=== PATIENT | female | born 1955 | race Caucasian/White ===

== ENCOUNTER 2017-03-02 16:19 | Inpatient (IN) | payer OTHER, MEDICARE ==
[2017-03-02] MEDS ORDERED: SODIUM CHLORIDE 0.9% (FLUSH) 10 ML SYG IV PRN (16:59)
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
[2017-03-02] MEDS ORDERED: IPRATROPIUM/ALBUTEROL 3 ML VIAL NEB ONE (17:08)
[2017-03-02] MEDS: SODIUM CHLORIDE 0.9% 1000ML 1,000 ML IVS PRN ×2 (17:15→18:51)
--- NOTE | 2017-03-02 17:28 | RAD ---
PROCEDURE: XR CHEST 1 VIEW HISTORY: COUGH COMPARISON: 07/03/2015 TECHNIQUE: Single projection of the chest was done. FINDINGS: The lung rose are well inflated . There are no discrete airspace infiltrates, pneumothoraces or pleural effusions. The pulmonary vascularity is normal. The cardiomediastinal silhouette is stable. IMPRESSION: There is no acute pleural-parenchymal process seen in the imaged lung rose. Location of Interpretation: [facility] Electronically signed by: Shola Bishop MD 03/02/2017 5:28 PM CDT
[2017-03-02] MEDS ORDERED: SODIUM CHLORIDE 0.9% 1000ML 1,000 ML IVS ONE (18:49)
[2017-03-02] MEDS ORDERED: metroNIDAZOLE 500 MG TAB PO ONE (20:55)
[2017-03-02] MEDS ORDERED: metroNIDAZOLE IV PREMIX 500MG 500 MG in PREMIX BAG 1 BAG IVPB ONE (21:09)
[2017-03-02] MEDS ORDERED: metroNIDAZOLE IV PREMIX 500MG 100 ML IVPB ONE (21:13)
[2017-03-02] MEDS ORDERED: PSYLLIUM ONE (21:38)
[2017-03-02] MEDS ORDERED: ONDANSETRON INJ 4 MG/2 ML VIAL IV ONE ×2 (21:38)
[2017-03-02] MEDS ORDERED: ONDANSETRON INJ 4 MG/2 ML VIAL IV PRN (21:48)
[2017-03-02] MEDS ORDERED: ACETAMINOPHEN 325 MG TAB PO PRN (21:48)
[2017-03-02] MEDS ORDERED: GLUCAGON INJ 1 MG VIAL SUBCU PRN (21:48)
[2017-03-02] MEDS ORDERED: ALBUTEROL SULFATE 2.5 MG/3 ML VIAL NEB PRN (21:48)
[2017-03-02] MEDS ORDERED: PROCHLORPERAZINE INJ 10 MG/2 ML VIAL IV ONE (22:06)
--- NOTE | 2017-03-02 22:18 | HP ---
SUPERVISING PHYSICIAN: Ruel Liu MD CHIEF COMPLAINT: Shortness of breath with nausea, vomiting and diarrhea. HISTORY OF PRESENT ILLNESS: Ms. Briones is a 61-year-old, female with a history of hypogammaglobulinemia that presented to the Emergency Department today after she had a near syncopal episode at home while on the toilet. The patient noted she felt dizzy and had seen some spots, but reported she did not completely lose consciousness. The patient had been having some nausea, vomiting and diarrhea that began earlier in the morning. She had seen her primary care provider in the clinic early the morning of admission for an upper respiratory infection and had been started on Augmentin and given a Celestone steroid shot. Upon admission by EMS, the patient was found to be hypotensive as well as when she was admitted to the Emergency Department. The patient does have a remote history of antibiotic usage within the last 3 months having been on cefdinir in November for an upper respiratory infection. In the Emergency Department, she was provided IV fluids and laboratory studies were completed that indicated she had a white count of 19.8 with a shift on differential noted. Chemistries showed normal electrolytes with potassium 4.7, BUN 27, creatinine 1.79, glucose 374, lactic acid 2.2, calcium 8.9, magnesium 2.5. Bilirubin elevated at 1.1 with alkaline phosphatase 195. Cardiac enzymes showed troponin less than 0.02. Amylase was elevated at 304, but lipase was normal at 33. Urinalysis showed 500 glucose 15 ketones, small amount of blood, small amount of bilirubin with microscopic showing 3 to 5 RBCs, 0 to 1 WBCs, 3+ amorphus, 1+ bacteria. Given that she was having diarrhea and had been on recent antibiotics, Clostridium difficile testing for A&B was requested which was positive for C. difficile antigen, but negative for C. difficile toxin A&B. The patient also had blood cultures drawn and after results of C. difficile testing, the patient was started on treatment for C. difficile infection with vancomycin orally and IV metronidazole. After treatment was initiated, she was then admitted to the hospital for further treatment and evaluation. PAST MEDICAL HISTORY: 1. Gammaglobulin deficiency. 2. Insulin dependent diabetes mellitus, type 2. 3. Diabetic neuropathy. 4. Bipolar disorder. 5. Hyperlipidemia. 6. Hypertension. 7. Obesity. PAST SURGICAL HISTORY: 1. Tonsillectomy. 2. Cholecystectomy. 3. Ectopic , surgically removed. 4. Hysterectomy with salpingo-oophorectomy. HOME MEDICATIONS: Please refer to updated list in the electronic medical record that have been verified, but currently listed: 1. Aspirin 81 mg daily. 2. Triazolam 0.25 mg at bedtime. 3. Bydureon 2 mg subcutaneously weekly. 4. Tramadol 50 mg as needed. 5. Ropinirole 1 mg as needed. 6. Multivitamins with minerals 1 daily. 7. Vitamin C 1000 mg daily. 8. Multivitamin 1 unit daily. 9. Iron sulfate 65 mg daily. 10. Loratadine 10 mg daily. 11. Farxiga 10 mg daily. 12. Toujeo Solostar 300 units subcutaneously daily. 13. Metoprolol succinate ER 25 mg daily. 14. Divalproex sodium 500 mg daily. 15. Calcification with magnesium 750/465 mg 1 daily. 16. B Complex 1 daily. 17. Gabapentin 300 mg 3 times daily. 18. Oxybutynin chloride ER 10 mg daily. 19. Lisinopril 25 mg daily. 20. Seroquel 600 mg at bedtime. 21. Trazodone 300 mg at bedtime. ALLERGIES: CODEINE, SULFA DRUGS. FAMILY HISTORY: Unremarkable. SOCIAL HISTORY: The patient works as a therapy aide. She is and she lives in [place]. She has never smoked and she drinks alcohol on an infrequent basis. She denies any illicit drug use. REVIEW OF SYSTEMS: CONSTITUTIONAL: Positive for malaise, but denies any fevers, chills. HEENT: Denies ear pain or sore throat. RESPIRATORY: As noted in history of present illness, cough and shortness of breath. CARDIOVASCULAR: Denies chest pain. GASTROINTESTINAL: As note din history of present illness, diarrhea, nausea and vomiting. Denies any nancy abdominal pain. GENITOURINARY: Denies dysuria, increased frequency or other urinary symptoms. MUSCULOSKELETAL: Multiple chronic joint pains. NEUROLOGIC: Bipolar with severe emotional problems recently started on medications due to episode of jovanna and also reporting weakness. PHYSICAL EXAMINATION: VITAL SIGNS: Initially in the Emergency Department, blood pressure 90/57. Heart rate 87. O2 saturation 94% on room air. Respirations 16. On admission to the Medical/Surgical Floor, temperature was 99.2. Pulse 86. Blood pressure 136/88. O2 saturation 94%. Respirations 18. GENERAL: The patient was alert. She was in some mild distress with active emesis and prominent cough. HEENT: Tympanic membranes clear bilaterally. Oropharynx is mildly erythematous , but no lesions. NECK: Supple. No jugular venous distention noted. CHEST: Lungs notable for rales and rhonchi on the left compared to the right with a very hoarse sounding cough. CARDIOVASCULAR: Regular rate and rhythm without any appreciable murmurs, gallops, or rubs. ABDOMEN: Soft, nontender. Positive bowel sounds. EXTREMITIES: There is no cyanosis, clubbing or edema. NEUROLOGIC: The patient is alert and oriented times three. LABORATORY: White count on admission showed leukocytosis of 19.8, hemoglobin 14.4, hematocrit 45.3, platelet count 242,000, differential did show a left shift. Coagulation studies showed PT 11.3, PT-T 29.8. Chemistries showed on admission normal electrolytes with potassium 4.7, BUN 27, creatinine 1.79, glucose initially 274, lactic acid 2.2, calcium 8.9, magnesium 2.5. Troponin initially was less than 0.02. Amylase elevated at 304, lipase normal at 33. Liver functions showed just a slightly elevated bilirubin at 1.1. Urinalysis showed 500 glucose with 15 ketones, moderate amount of blood, small bilirubin with microscopic showing within normal limits. MICROBIOLOGY: Blood cultures were submitted times 2. Stool C. difficile toxin A&B was positive. RADIOLOGY: CT of abdomen pending. ASSESSMENT: 1. Leukocytosis secondary to Clostridium difficile infection with concerns for developing early sepsis and enterocolitis. 2. Gammaglobulin deficiency. 3. Insulin dependent diabetes mellitus, type 2. 4. Diabetic neuropathy. 5. Bipolar disorder. 6. Hyperlipidemia. 7. Hypertension. PLAN: Patient will be admitted for initiation of treatment with oral vancomycin and IV Flagyl. Infectious disease discussion with Dr. Noguera recommended we continue with treatment for 14 days, but once the patient's leukocytosis is resolved, she could be continued in outpatient treatment setting. The patient will be supported with IV fluids. We will anticipate her stay to be at least 2 to 3 days depending on how well she responds to treatment and once her white count responds and normalizes, she will be stable enough to be discharged home to continue with outpatient treatment plan. Until then, we will continue to monitor the patient closely and treat appropriately. Once she is discharged, she can be followed up in the outpatient setting with her primary care provider, Dr. Cordon. #[id number] #[id number] [facility]
--- NOTE | 2017-03-02 23:27 | CT ---
EXAM DESCRIPTION: Abdomen/Pelvis w/Contrast (accession [id number]), Chest w/Contrast (accession [id number]) CLINICAL HISTORY: C diff infection/colitis COMPARISON: None Available. TECHNIQUE: Contiguous axial images of the chest, abdomen and pelvis were obtained followed by reconstruction images. This exam was performed according to our departmental dose-optimization program, which includes automated exposure control, adjustment of the mA and/or kV according to patient size and/or use of iterative reconstruction technique. FINDINGS: There is a trace amount of free fluid in the pelvis. There is diffuse mucosal thickening of the descending colon and distal transverse colon which could be secondary to an infectious versus inflammatory colitis. There is mild stranding of the adjacent fat. Calcifications within the pelvis compatible with phlebolith. Appendix was not visualized, there is no pericecal inflammation. There is a small bulla within its lower lung. The aorta is of normal contour and tapering. There is no pericardial or pleural fluid collection. There is no parenchymal consolidation or pneumothorax. The liver, spleen, pancreas and kidneys are within normal limits. There is no hydronephrosis or renal stones. Patient is status post cholecystectomy. Adrenal glands are within normal limits. Aorta is of normal caliber and tapering. There is no free fluid in the abdomen or pelvis. There is no bowel obstruction. IMPRESSION: Diffuse mucosal thickening of the distal transverse colon and descending colon could be secondary to an infectious versus inflammatory colitis. Other etiologies not excluded. Please correlate. Electronically signed by: Manav Owens MD 03/02/2017 11:26 PM CDT
[2017-03-02] MEDS ORDERED: INSULIN, REG.(HUMAN) 100 U/ML VIAL ONE ×2 (23:37→23:51)
[2017-03-02] MEDS: KCL 40MEQ/NS 1,000 ML IVS PRN (23:52)
[2017-03-02] MEDS: VANCOMYCIN ORAL LIQUID 2,000 MG/80 ML BOTTLE PO SCH (23:52)
[2017-03-02] MEDS: IV SET AND CAP CHANGE INJ INJ SCH (23:52)
[2017-03-03] MEDS: VANCOMYCIN ORAL LIQUID 2,000 MG/80 ML BOTTLE PO SCH ×4 (00:26→18:41)
[2017-03-03] MEDS: INSULIN LISPRO 100 UNITS/ML PEN SUBCU SCH ×4 (00:36→18:41)
[2017-03-03] MEDS: traZODone HCL 100 MG TAB PO SCH ×2 (02:52→21:25)
[2017-03-03] MEDS ORDERED: traZODone HCL 100 MG TAB PO ONE (02:52)
[2017-03-03] MEDS ORDERED: metroNIDAZOLE IV PREMIX 500MG 100 ML IVPB ONE ×4 (05:25→20:41)
[2017-03-03] MEDS: metroNIDAZOLE IV PREMIX 500MG 500 MG in PREMIX BAG 1 BAG IVPB SCH ×3 (05:25→20:20)
[2017-03-03] MEDS ORDERED: INSULIN, REG.(HUMAN) 100 U/ML VIAL ONE (06:29)
[2017-03-03] MEDS: IPRATROPIUM/ALBUTEROL 3 ML VIAL INH SCH ×4 (08:19→20:30)
[2017-03-03] MEDS ORDERED: PROCHLORPERAZINE INJ 10 MG/2 ML VIAL IV PRN (08:47)
[2017-03-03] MEDS: KCL 40MEQ/NS 1,000 ML IVS PRN ×2 (09:39→21:24)
--- NOTE | 2017-03-03 13:16 | PN ---
SUPERVISING PHYSICIAN: Ruel Liu MD DATE: 03/03/17 SUBJECTIVE: The patient is lying in her bed. She is somewhat drowsy. She earlier had complaints of some vomiting and Zofran had not helped, so she received some Compazine. She does awaken easily and answers questions appropriately, but again she is very sleepy. She has no complaints of shortness of breath or chest pain. She does complain of that her abdomen is still quite tender. OBJECTIVE: VITAL SIGNS: Temperature 100. Heart rate 91. Blood pressure 123/ 71. Respiratory rate 20. O2 saturation 90%. LUNGS: Somewhat diminished at the bases, but otherwise clear to auscultation. CARDIAC: Regular rate and rhythm. ABDOMEN: Soft. It is diffusely tender. There is no rebound tenderness. Bowel sounds are positive. EXTREMITIES: No cyanosis, clubbing or edema. NEUROLOGIC: The patient is drowsy, but she is oriented times three. LABORATORY: White count has come down slightly to 18. She does have a left shift. Potassium is slightly elevated at 5.2. BUN is 21, but her creatinine has normalized at 1.19. Her bilirubin was elevated yesterday and today is 0.8. Alkaline phosphatase has decreased to 131. Amylase is 71 and her lipase is 19. All other labs and films have been reviewed via the EMR. ASSESSMENT: 1. Clostridium Difficile with acute gastroenteritis. 2. Nausea, vomiting and diarrhea. 3. Dehydration most likely due to number 2. 4. Near syncopal episode most likely due to the Clostridium Difficile and dehydration. 5. Upper respiratory infection being seen previously by her primary care physician, Dr. Cordon and put on Augmentin, although she only received 1 or 2 doses. 6. Leukocytosis, question if it is due to the Clostridium Difficile and/or the upper respiratory infection. 7. Diabetes mellitus. 8. Gamma globulin deficiency. 9. Hypertension. PLAN: We will continue as an inpatient and monitor the patient closely. Dr. Noguera recommended that she be on the oral vancomycin as well as IV Flagyl, and to continue that for 14 total days. If she improves, she may be able to go home on p.o. antibiotics and followup with Dr. Cordon. As of now, she is NPO except for her medications and she is getting some ice chips. We can advance her diet once her abdomen becomes less tender and she no longer has diarrhea. I have ordered routine labs in the morning. We will follow her closely and treat as appropriate. Dr. Liu is the collaborating physician and available for consultation. #[id number], #[id number], #[id number] and #[id number] [facility]
[2017-03-03] MEDS: HYDROcodone 5MG/APAP 325MG 1 EA TAB PO PRN ×2 (16:08→22:13)
[2017-03-03] MEDS ORDERED: QUETIAPINE FUMARATE 600 MG PO SCH (21:00)
[2017-03-03] MEDS ORDERED: TRAZODONE HCL 300 MG PO SCH (21:00)
[2017-03-03] MEDS: DIVALPROEX SODIUM ER 500 MG TAB PO SCH (21:25)
[2017-03-03] MEDS: GABAPENTIN 300 MG CAP PO SCH (21:26)
[2017-03-03] MEDS: TRIAZOLAM 0.25 MG PO SCH (21:27)
[2017-03-04] MEDS: INSULIN LISPRO 100 UNITS/ML PEN SUBCU SCH ×4 (00:22→19:15)
[2017-03-04] MEDS: VANCOMYCIN ORAL LIQUID 2,000 MG/80 ML BOTTLE PO SCH ×4 (00:23→19:16)
[2017-03-04] MEDS: metroNIDAZOLE IV PREMIX 500MG 500 MG in PREMIX BAG 1 BAG IVPB SCH ×3 (04:22→19:18)
[2017-03-04] MEDS: KCL 40MEQ/NS 1,000 ML IVS PRN ×2 (06:34→15:40)
[2017-03-04] MEDS: IPRATROPIUM/ALBUTEROL 3 ML VIAL INH SCH ×4 (08:45→20:56)
[2017-03-04] MEDS ORDERED: NON-FORMULARY MEDICATION 1 EA MIS (Oxybutynin Chloride [Oxybutynin Chloride Er] 10 MG) PO SCH (09:00)
[2017-03-04] MEDS: LORATADINE 10 MG TAB PO SCH (09:16)
[2017-03-04] MEDS: HYDROcodone 5MG/APAP 325MG 1 EA TAB PO PRN ×3 (09:16→21:29)
[2017-03-04] MEDS: TOLTERODINE TARTRATE ER 4 MG CAP PO SCH (09:17)
[2017-03-04] MEDS: DIVALPROEX SODIUM ER 500 MG TAB PO SCH ×2 (09:17→21:27)
[2017-03-04] MEDS: LISINOPRIL 5 MG TAB PO SCH (09:17)
[2017-03-04] MEDS: METOPROLOL SUCCINATE XL 25 MG TAB PO SCH (09:17)
[2017-03-04] MEDS: GABAPENTIN 300 MG CAP PO SCH ×3 (09:17→21:28)
[2017-03-04] MEDS ORDERED: metroNIDAZOLE IV PREMIX 500MG 100 ML IVPB ONE ×2 (11:31→19:18)
[2017-03-04] MEDS: DEXTROSE 50% 25 GM/50 ML SYG IV PRN (18:13)
[2017-03-04] MEDS: SODIUM CHLORIDE 0.9% (FLUSH) 10 ML SYG IV PRN (18:14)
[2017-03-04] MEDS ORDERED: DEX 5% IV PRN (19:09)
[2017-03-04] MEDS ORDERED: POTASSIUM CHLORIDE IV PRN (19:09)
[2017-03-04] MEDS ORDERED: NACL 0.9% IV PRN (19:09)
[2017-03-04] MEDS ORDERED: traZODone HCL 100 MG TAB PO SCH (21:00)
[2017-03-04] MEDS: traZODone HCL 100 MG TAB PO SCH (21:28)
[2017-03-04] MEDS: QUETIAPINE FUMARATE 600 MG PO SCH (21:29)
[2017-03-04] MEDS: TRIAZOLAM 0.25 MG PO SCH (21:30)
--- NOTE | 2017-03-04 21:31 | PN ---
DATE: 03/04/17 SUPERVISING PHYSICIAN: Ruel Liu MD SUBJECTIVE: The patient is sitting on the side of her bed. She does complain of some eye itchiness. She also complains that she continues to have diarrhea, although she has had only about 3 or 4 in the last 24 hours, but they continue to be very loose. Her abdominal pain comes and goes. She states she still feels quite weak. We discussed at length her treatment course. She denies any shortness of breath or chest pain. OBJECTIVE: VITAL SIGNS: She is afebrile, heart rate 94, blood pressure 127/79, respiratory rate 20, O2 sat is 92%. HEENT: Her bilateral eyes have a very small amount of purulent-type drainage. Her conjunctiva are erythematous. RESPIRATORY: She is essentially clear to auscultation bilaterally. CARDIAC: Regular rate and rhythm. ABDOMEN: Soft. It continues to be diffusely tender. The tenderness is somewhat improved since yesterday. Bowel sounds are positive. EXTREMITIES: No cyanosis, clubbing or edema. NEUROLOGIC: She is awake, alert and oriented times three. LABORATORY: White count has gone up slightly to 19.7, neutrophils have improved slightly to 86.2, hemoglobin 11.8, hematocrit 36.0. Metabolic panel is basically within normal limits with the exception of her calcium is slightly low at 8.1. All other labs and films have been reviewed via the EMR. ASSESSMENT: 1. Clostridium Difficile with acute gastroenteritis. 2. Nausea, vomiting and diarrhea. 3. Dehydration most likely due to number 2. 4. Near syncopal episode most likely due to the Clostridium Difficile and dehydration. 5. Upper respiratory infection being seen previously by her primary care physician, Dr. Cordon and put on Augmentin, although she only received 1 or 2 doses. 6. Leukocytosis, question if it is due to the Clostridium Difficile and/or the upper respiratory infection. 7. Diabetes mellitus. 8. Gamma globulin deficiency. 9. Hypertension. PLAN: We will continue to monitor the patient closely. Dr. Noguera has recommended that she be on oral vancomycin as well as IV Flagyl for a total of 14 days. At this point, she will continue to be NPO. Her diet will not be advanced until her abdominal pain improves as well as she no longer has any acute diarrhea. At some point she may be able to go home on oral antibiotics, but we will have to see how she improves clinically. I have given her some Gentamicin eyedrops. She also will not be able to go home as per recommendations of Dr. Noguera until her white count normalizes. I have ordered AM labs. We will continue to monitor the patient closely and treat as appropriate. Dr. Liu is the collaborating physician available for consultation. #[id number] [facility]
[2017-03-04] MEDS: GENTAMICIN OPTH SOL 0.3% 5ML BOTTLE BOTH_EYES SCH (21:34)
[2017-03-05] MEDS: VANCOMYCIN ORAL LIQUID 2,000 MG/80 ML BOTTLE PO SCH ×5 (00:17→23:51)
[2017-03-05] MEDS: INSULIN LISPRO 100 UNITS/ML PEN SUBCU SCH ×4 (00:17→17:09)
[2017-03-05] MEDS: DEXTROSE 50% 25 GM/50 ML SYG IV PRN (00:17)
[2017-03-05] MEDS ORDERED: KCL 40MEQ/NS 1,000 ML IVS ONE (01:57)
[2017-03-05] MEDS ORDERED: D5 IVS ONE (02:05)
[2017-03-05] MEDS ORDERED: [UNRECOGNIZED DRUG - OTHER] IVS ONE (02:05)
[2017-03-05] MEDS ORDERED: KCL IVS ONE (02:05)
[2017-03-05] MEDS ORDERED: DEX 5% W/NACL 0.9% 1000ML 1,000 ML IVS ONE (02:41)
[2017-03-05] MEDS ORDERED: POTASSIUM CHLORIDE 40mEq 20ML VIAL ONE (02:41)
[2017-03-05] MEDS ORDERED: metroNIDAZOLE IV PREMIX 500MG 100 ML IVPB ONE ×4 (03:25→20:12)
[2017-03-05] MEDS: metroNIDAZOLE IV PREMIX 500MG 500 MG in PREMIX BAG 1 BAG IVPB SCH ×3 (03:28→20:22)
[2017-03-05] MEDS: HYDROcodone 5MG/APAP 325MG 1 EA TAB PO PRN ×4 (04:25→23:05)
[2017-03-05] MEDS: IPRATROPIUM/ALBUTEROL 3 ML VIAL INH SCH ×4 (08:37→20:09)
[2017-03-05] MEDS: LISINOPRIL 5 MG TAB PO SCH (09:00)
[2017-03-05] MEDS: GABAPENTIN 300 MG CAP PO SCH ×3 (09:00→21:40)
[2017-03-05] MEDS: METOPROLOL SUCCINATE XL 25 MG TAB PO SCH (09:00)
[2017-03-05] MEDS: TOLTERODINE TARTRATE ER 4 MG CAP PO SCH (09:00)
[2017-03-05] MEDS: LORATADINE 10 MG TAB PO SCH (09:01)
[2017-03-05] MEDS: GENTAMICIN OPTH SOL 0.3% 5ML BOTTLE BOTH_EYES SCH ×4 (09:03→21:40)
--- NOTE | 2017-03-05 15:44 | PN ---
DATE: 03/05/17 SUPERVISING PHYSICIAN: Ruel Liu MD SUBJECTIVE: The patient is sitting up in her bed. She feels much better today. In fact, she was up walking in the z[place] during the night. She has had no diarrhea for approximately 24 hours. She said she did have 2 small formed stools. Otherwise she has no complaints of chest pain, shortness of breath, abdominal pain, nausea or vomiting. She also said that she was tolerating her diet well and she was actually hungry. OBJECTIVE: She is afebrile, pulse rate 83, blood pressure 101/58, respiratory rate 18, O2 sat 91%. LUNGS: Clear to auscultation bilaterally. CARDIAC: Regular rate and rhythm. ABDOMEN: Soft, non-tender, nondistended. Bowel sounds are positive. EXTREMITIES: No cyanosis, clubbing or edema. NEUROLOGIC: She is awake, alert and oriented times three. LABORATORY: White count has gone up to 19.7. She has a left shift. Hemoglobin 11.8, hematocrit 36. Chemistries show serum osmolality 271, calcium 8.1, otherwise they are within normal limits. Preliminary blood cultures show no growth after 48 hours. All other labs and films have been reviewed via the EMR. ASSESSMENT: 1. Clostridium Difficile with acute gastroenteritis. 2. Nausea, vomiting and diarrhea. 3. Dehydration most likely due to number 2. 4. Near syncopal episode most likely due to the Clostridium Difficile and dehydration. 5. Upper respiratory infection being seen previously by her primary care physician, Dr. Cordon and put on Augmentin, although she only received 1 or 2 doses. 6. Leukocytosis, question if it is due to the Clostridium Difficile and/or the upper respiratory infection. 7. Diabetes mellitus. 8. Gamma globulin deficiency. 9. Hypertension. PLAN: We will continue to advance the diet slowly as tolerated. He is presently on a full liquid diet and is not having any problems with it. Dr. Noguera has recommended that she stay of oral vancomycin as well as IV Flagyl for a total of 14 days and that she should not go home until her WBCs have normalized. Hopefully soon she will be able to go home on some oral antibiotics. We will see how she improves as well as make sure her lab studies. It may be advisable to call Dr. Noguera in the next day or 2 if her white count continues to be elevated, but she improves clinically. AM labs have been ordered. Otherwise we will continue to monitor the patient closely and followup as needed. Dr. Liu is the collaborating physician available for consultation. #[id number] [facility]
[2017-03-05] MEDS ORDERED: WATER FOR INJ 10 ML VIAL INJ ONE (16:02)
[2017-03-05] MEDS ORDERED: VANCOMYCIN HCL INJ 1,000 MG VIAL IVPB ONE (16:02)
[2017-03-05] MEDS: DIVALPROEX SODIUM ER 500 MG TAB PO SCH (21:39)
[2017-03-05] MEDS: traZODone HCL 100 MG TAB PO SCH (21:40)
[2017-03-05] MEDS: QUETIAPINE FUMARATE 600 MG PO SCH (21:40)
[2017-03-05] MEDS: INSULIN, REG.(HUMAN) 100 U/ML VIAL SUBCU SCH (21:40)
[2017-03-05] MEDS: TRIAZOLAM 0.25 MG PO SCH (21:41)
[2017-03-05] MEDS: IV SET AND CAP CHANGE INJ INJ SCH (21:42)
[2017-03-06] MEDS ORDERED: metroNIDAZOLE IV PREMIX 500MG 100 ML IVPB ONE ×3 (04:17→19:45)
[2017-03-06] MEDS: metroNIDAZOLE IV PREMIX 500MG 500 MG in PREMIX BAG 1 BAG IVPB SCH ×3 (04:18→20:07)
[2017-03-06] MEDS: HYDROcodone 5MG/APAP 325MG 1 EA TAB PO PRN ×3 (06:23→18:36)
[2017-03-06] MEDS: VANCOMYCIN ORAL LIQUID 2,000 MG/80 ML BOTTLE PO SCH ×3 (06:23→18:35)
[2017-03-06] MEDS: INSULIN, REG.(HUMAN) 100 U/ML VIAL SUBCU SCH ×2 (08:15→13:05)
[2017-03-06] MEDS: IPRATROPIUM/ALBUTEROL 3 ML VIAL INH SCH ×3 (08:35→13:31)
[2017-03-06] MEDS: GENTAMICIN OPTH SOL 0.3% 5ML BOTTLE BOTH_EYES SCH ×5 (09:04→20:39)
[2017-03-06] MEDS: LISINOPRIL 5 MG TAB PO SCH (09:04)
[2017-03-06] MEDS: METOPROLOL SUCCINATE XL 25 MG TAB PO SCH (09:04)
[2017-03-06] MEDS: LORATADINE 10 MG TAB PO SCH (09:04)
[2017-03-06] MEDS: GABAPENTIN 300 MG CAP PO SCH ×3 (09:05→20:40)
[2017-03-06] MEDS: TOLTERODINE TARTRATE ER 4 MG CAP PO SCH (09:05)
[2017-03-06] MEDS: INSULIN LISPRO 100 UNITS/ML PEN SUBCU SCH ×3 (12:35→21:56)
--- NOTE | 2017-03-06 16:41 | PN ---
DATE: 03/06/17 SUPERVISING PHYSICIAN: Ruel Liu M.D. SUBJECTIVE: The patient is sitting up in her bed. She is watching television. Her is at her bedside. She had a rough afternoon yesterday in that she felt fairly weak and she thought she was getting sick again, but she slept well overnight and today she is feeling much better. She is tolerating her full liquid diet at this time. She has no complaints of chest pain, shortness of breath, abdominal pain, nausea, vomiting or diarrhea. She has had 2 formed stools today but they were not like her previous stools. OBJECTIVE: VITAL SIGNS: Temperature 99, heart rate 88, blood pressure 99/61, respiratory rate 20, O2 sat 91%. RESPIRATORY: Clear to auscultation bilaterally. CARDIAC: Regular rate and rhythm. ABDOMEN: Soft, nondistended, non-tender. Bowel sounds are positive. EXTREMITIES: No cyanosis, clubbing or edema. NEUROLOGIC: She is awake, alert and oriented times three. LABORATORY: WBC of 17.4 with a normal hemoglobin and hematocrit, neutrophils 84.9. Sodium 133, potassium 4.1, chloride 98, BUN 8, creatinine 0.92. Blood sugars are up between 140 and 248. Alkaline phosphatase has normalized to 105. All other labs and films have been reviewed via the EMR. ASSESSMENT: 1. Clostridium Difficile with acute gastroenteritis. 2. Nausea, vomiting and diarrhea. 3. Dehydration most likely due to number 2. 4. Near syncopal episode most likely due to the Clostridium Difficile and dehydration. 5. Upper respiratory infection being seen previously by her primary care physician, Dr. Cordon and put on Augmentin, although she only received 1 or 2 doses. 6. Leukocytosis, question if it is due to the Clostridium Difficile and/or the upper respiratory infection. 7. Diabetes mellitus. 8. Gamma globulin deficiency. 9. Hypertension. PLAN: We will continue present supportive care, including her oral antibiotics. I will also keep her on full liquids. She has seen Dr. Roberts in the past and she will need a GI consultation after she is discharged. Dr. Noguera is her Infectious Diseases physician. She has followed her very closely for some time now and she has recommended that she not be discharged from the hospital until her WBCs have normalized. She is clinically much improved so we may need to call Dr. Noguera tomorrow and discuss that with her, although I think GI may be another recommended consultation. She is scheduled to have IVIG treatment with Dr. Noguera on , so it may be beneficial to followup with Dr. Noguera for how she wants to handle her IVIG treatments as well as when we should advance her diet. I have given the patient some up to date information on Clostridium Difficile. I have ordered lab for in the morning. I have also consulted Physical Therapy since she has been in the hospital for some time so they can see her for strengthening and conditioning. Otherwise we will continue to monitor the patient closely and followup as needed. Dr. Liu is the collaborating physician available for consultation. #[id number] [facility]
[2017-03-06] MEDS: LACTASE PO PRN (16:42)
[2017-03-06] MEDS: QUETIAPINE FUMARATE 600 MG PO SCH ×2 (20:07→20:40)
[2017-03-06] MEDS: SODIUM CHLORIDE 0.9% (FLUSH) 10 ML SYG IV PRN (20:07)
[2017-03-06] MEDS: TRIAZOLAM 0.25 MG PO SCH (20:20)
[2017-03-06] MEDS: traZODone HCL 100 MG TAB PO SCH (20:38)
[2017-03-06] MEDS: DIVALPROEX SODIUM ER 500 MG TAB PO SCH (20:39)
[2017-03-07] MEDS: VANCOMYCIN ORAL LIQUID 2,000 MG/80 ML BOTTLE PO SCH ×3 (00:39→11:31)
[2017-03-07] MEDS: HYDROcodone 5MG/APAP 325MG 1 EA TAB PO PRN ×3 (01:07→13:41)
[2017-03-07] MEDS ORDERED: metroNIDAZOLE IV PREMIX 500MG 100 ML IVPB ONE ×2 (01:49→11:29)
[2017-03-07] MEDS: SODIUM CHLORIDE 0.9% (FLUSH) 10 ML SYG IV PRN (04:05)
[2017-03-07] MEDS: metroNIDAZOLE IV PREMIX 500MG 500 MG in PREMIX BAG 1 BAG IVPB SCH ×2 (04:07→11:36)
[2017-03-07] MEDS: LACTASE PO PRN ×2 (07:48→17:01)
[2017-03-07] MEDS: INSULIN LISPRO 100 UNITS/ML PEN SUBCU SCH ×3 (07:48→17:02)
[2017-03-07] MEDS: GABAPENTIN 300 MG CAP PO SCH ×2 (09:53→15:30)
[2017-03-07] MEDS: TOLTERODINE TARTRATE ER 4 MG CAP PO SCH (09:53)
[2017-03-07] MEDS: LISINOPRIL 5 MG TAB PO SCH (09:53)
[2017-03-07] MEDS: METOPROLOL SUCCINATE XL 25 MG TAB PO SCH (09:53)
[2017-03-07] MEDS: LORATADINE 10 MG TAB PO SCH (09:53)
[2017-03-07] MEDS: GENTAMICIN OPTH SOL 0.3% 5ML BOTTLE BOTH_EYES SCH ×3 (09:54→17:02)
[2017-03-07 12:17] VITALS: BP 101/75; TEMP 97.8
--- NOTE | 2017-03-07 17:37 | DS ---
DISCHARGE DIAGNOSIS: 1. Acute gastroenteritis with diarrhea state with diagnosis of Clostridium Difficile after stool testing and currently under treatment initially with vancomycin and now to continue with Metronidazole. 2. Nausea, vomiting and diarrhea. 3. Moderate dehydration, improved with hydration probably secondary to the infectious gastroenteritis. 4. Near syncopal episode most likely due to the dehydration and the diarrhea state showing some improvement. 5. Upper respiratory infection recently being treated on Augmentin only having received 1 or 2 doses before symptoms were especially noted. 6. Leukocytosis showing improvement. 7. Diabetes mellitus by history. 8. History of chronic gammaglobulin deficiency requiring intravenous gammaglobulin dosing by Dr. Noguera, [facility] in [place]. 9. History of hypertension. HISTORY OF PRESENT ILLNESS: This 61 year-old white female is admitted to the hospital from the Emergency Room after almost passing out while on the toilet at home. She became very dizzy and did not completely lose consciousness but was close to it. She had had onset of nausea, vomiting and diarrhea since earlier in the morning. She had had a Celestone shot and Augmentin in the outpatient clinic for an upper respiratory symptom complex. She had been on Cefdinir in November for an upper respiratory infection as well. She has been attempting to eat yogurt occasionally. She was admitted to the hospital because of the C-Diff testing which showed results positive. She was started on parenteral Metronidazole and vancomycin orally in an attempt to blunt the current symptomatology and prevent further worsening. LABORATORY: White count was up to 19.8 with 93% neutrophils on admission down to 13,800 with 78% neutrophils, hemoglobin 12.3 on discharge. INR of 1. Chemistries showed on discharge potassium 4.2, BUN 9, creatinine 0.87, glucose fasting of 161, calcium 8.3. Liver enzymes were normal. Albumin is 3.1. Urinalysis showed glycosuria, ketonuria, hematuria and 1+ bacteriuria. Cultures of the blood showed no growth and stool culture showed no enteric pathogens. Clostridium Difficile exam of the stool did reveal a positive antigen, yet a negative toxin present. CT scan of the abdomen showed diffuse mucosal thickening of the distal transverse colon and descending colon probably secondary to an inflammatory colitis. CT of the chest is performed and showed no specific abnormalities. HOSPITAL COURSE: The patient was feeling much improved on the day of discharge which is the 5th day of treatment. She felt improved to the point that she was ready to continue with outpatient therapy. PLAN: The patient is discharged home to have followup with Dr. Cordon later this next week. She is to followup with Dr. Noguera for her intravenous gammaglobulin injections which she receives on a monthly basis. She is to drink plenty of fluids, avoid dairy for the next week. Continue with the Flagyl 500 mg every 8 hours and if medication causes nausea, to discuss with Dr. Cordon for a possible dose adjustment. Try Align or other probiotics while taking the antibiotics. Closely observe for recurrent symptoms in weeks to come and report to Dr. Cordon at which time either re-treatment or pulse treatment may be indicated. Return if not improving. #[id number] [facility]
[2017-03-07 18:10] VITALS: O2SAT 97
== END 2017-03-07 17:40 | disposition home or self-care (01) | DRG 372 ==
LOC: ER 16:19 → MS 22:17
PROVIDERS: ADMIT Nurse Practitioner Family; ATTEND Emergency Medicine
DX: A04.7 Enterocolitis due to Clostridium difficile (principal); D80.1 Nonfamilial hypogammaglobulinemia; E11.40 Type 2 diabetes mellitus with diabetic neuropathy, unspecified; F31.9 Bipolar disorder, unspecified; E78.5 Hyperlipidemia, unspecified; I10 Essential (primary) hypertension; E66.9 Obesity, unspecified; E86.0 Dehydration; J06.9 Acute upper respiratory infection, unspecified; Z68.37 Body mass index [BMI] 37.0-37.9, adult; Z79.82 Long term (current) use of aspirin; Z88.2 Allergy status to sulfonamides; Z88.5 Allergy status to narcotic agent; Z79.4 Long term (current) use of insulin

== ENCOUNTER → 2017-07-27 | Outpatient (CLI) | payer BC | END | disposition home or self-care (01) | LOC: GMA 16:32 | PROVIDERS: ATTEND Physician Assistant | DX: N30.00 Acute cystitis without hematuria (principal) ==

== ENCOUNTER → 2017-10-04 | Outpatient (CLI) | payer BC | END | disposition home or self-care (01) | LOC: GMAB 11:21 | PROVIDERS: ATTEND Family Medicine | DX: Z79.4 Long term (current) use of insulin (principal); E11.9 Type 2 diabetes mellitus without complications; Z79.899 Other long term (current) drug therapy ==

== ENCOUNTER → 2017-10-11 | Outpatient (CLI) | payer BC ==
--- NOTE | 2017-10-14 10:03 | MAM ---
EXAM DESCRIPTION: 3D Screening BILATERAL : Digital Mammography. CLINICAL HISTORY: 62 years Female SCREENING no complaints. No family history of breast cancer. Postmenopausal. Has taken HRT 5 or more years ago. Prior benign biopsy right breast. COMPARISON: 2-D digital screening bilateral study 01/26/2016 and 05/27/2014. No prior reports available. TECHNIQUE: Bilateral CC and MLO projection full-field images, 3-D tomosynthesis digital mammographic technique. Also bilateral synthesized CC/ MLO full-field images. CAD not utilized. FINDINGS: The breast parenchymal density pattern is: Scattered areas of fibroglandular density. No skin thickening or nipple retraction lateral axillary lymph nodes. Bilateral solitary microcalcifications. Bilateral vascular calcifications. No focal, stellate mass or density, focal asymmetry , and no suspicious microcalcifications bilaterally. Stable mammograms compared to prior study, taking into account differences in mammographic technique IMPRESSION: BI-RADS CATEGORY: 2 - BENIGN FINDINGS. FOLLOW UP: Routine digital bilateral screening, one year interval from September 2017. Written communication explaining the IMPRESSION and follow-up, will be mailed to the patient and referring health care provider. According to the [employer], yearly mammograms are recommended starting at age 40 and continuing as long as a woman is in good health. Any breast change noted on a breast self-exam should be reported promptly to the patient's healthcare provider. Breast MRI is recommended for women with an approximately 20-25% or greater lifetime risk of breast cancer, including women with a strong family history of breast or ovarian cancer and women who have been treated for Hodgkin's disease. A negative mammographic report should not delay tissue diagnosis in patients with significant clinical history or physical findings. Extremely dense breast tissue limits the sensitivity of digital mammography. Electronically signed by: Pedro Rosales MD 10/14/2017 10:02 AM [facility]
== END ==
LOC: MAMMO 16:06
PROVIDERS: ATTEND Family Medicine
DX: Z12.31 Encounter for screening mammogram for malignant neoplasm of breast (principal)
CPT/HCPCS: 77063; G0202

== ENCOUNTER → 2018-04-19 | Outpatient (CLI) | payer BC | LOC: GMAB 11:16 | PROVIDERS: ATTEND Family Medicine | DX: F31.60 Bipolar disorder, current episode mixed, unspecified (principal) ==

== ENCOUNTER → 2018-10-05 | Outpatient (CLI) | payer BC | LOC: GMAE 10:43 | PROVIDERS: ATTEND Family Medicine | DX: Z00.01 Encounter for general adult medical examination with abnormal findings (principal); F31.60 Bipolar disorder, current episode mixed, unspecified ==

== ENCOUNTER → 2018-11-01 | Outpatient (CLI) | payer BC ==
--- NOTE | 2018-11-01 12:18 | MRI ---
EXAM DESCRIPTION: Brain w/oContrast: MRI. 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 CT head 02/13/2014. MRI brain 05/18/2013. TECHNIQUE: Multiplanar, high-field MRI unit, multiple diffusion sequences, multiple conventional sequences without contrast. FINDINGS: Normal FLAIR and T2-weighted signal in the periventricular white matter and car-white matter junctions of the cerebral hemispheres. . No hemorrhage, no cerebral edema, no mass effect or diffusion restriction.. Age-related signal in the bilateral basal ganglia. No hemorrhage, no cerebral edema, no mass effect or diffusion restriction. Normal signal in the brainstem and cerebellar hemispheres. No hemorrhage, no cerebral edema, no mass-effect. Concordance of the diffusion and non-diffusion sequences with no diffusion restriction. Cortical sulci, ventricles, and other CSF spaces, and the subdural spaces are normally configured for the patient's age. No effacement or displacement. No midline shift. No extra-axial hemorrhage. Normal flow signal void in the major vessels of the ho-chunk Ferreira, and the venous sinuses. No significant signal abnormality in the right middle cerebral artery. IACs are symmetric bilaterally. Normal signal in the bilateral mastoid air cells. No mass effect in the bilateral cerebellopontine angles. Pituitary gland occupies most of the sella. Base of the cerebellar tonsils is at the level of the foramen magnum. No significant abnormalities in the paranasal sinuses.. The bony calvarium is intact. IMPRESSION: No significant abnormalities on MRI of the brain without gadolinium contrast. No hemorrhage, mass effect, cerebral edema, or midline shift. Age-related changes in the bilateral basal ganglia. Electronically signed by: Pedro Rosales MD 11/01/2018 12:17 PM [facility]
--- NOTE | 2018-11-01 13:27 | MRI ---
EXAM DESCRIPTION: Lumbar Spine w/o Contrast : Magnetic Resonance Imaging. CLINICAL HISTORY: RADICULOPATHY, LUMBAR REGION COMPARISON: MRI lumbar spine without contrast 12/08/2011. TECHNIQUE: Multiplanar, multiple standard sequences, non contrast MRI, lumbar spine. FINDINGS: L5-S1: Normal signal in the disc with no bulging. Disc space minimal loss. Posterior elements unremarkable. Canal and foramina are patent. L4-L5: Normal signal in the disc with disc space preserved and no bulging. Posterior elements unremarkable. Canal and foramina are patent. L3-4: Minimal disc desiccation and minimal disc space loss. Minimal anterior bulging. Posterior elements unremarkable. Canal and foramina are patent. L2-3: Normal signal in the disc and disc space preserved with no bulging. Posterior elements unremarkable. Canal and foramina are patent. L1-2: Minimal desiccation of the disc with disc space preserved and no bulging posterior. Minimal anterior bulging. Posterior elements unremarkable. Canal and foramina are patent. Conus terminates at this level. T12-L1: Minimal anterior disc space loss. Anterior disc desiccation. Minimal anterior bulging. No posterior bulging. Posterior elements unremarkable. Canal and foramina are patent. Conus terminates at L1. No significant scoliosis. Paravertebral soft tissues negative.. Normal marrow signal in the remaining vertebral bodies and the posterior elements. Vertebral bodies are not compressed at any level. IMPRESSION: 1. Some the discs are desiccated minimal disc space loss at L5-S1 L3-4 and T12-L1. No significant posterior disc bulging and no herniation. Anterior disc bulging at some levels. 2. Posterior elements are unremarkable at almost every level. No canal or foraminal stenosis. No vertebral body compression deformities. Electronically signed by: Pedro Rosales MD 11/01/2018 1:26 PM [facility]
== END ==
LOC: MRI 09:00
PROVIDERS: ATTEND Psychiatry & Neurology Neurology
DX: I66.01 Occlusion and stenosis of right middle cerebral artery (principal); M51.16 Intervertebral disc disorders with radiculopathy, lumbar region

== ENCOUNTER → 2018-12-06 | Outpatient (CLI) | payer BC ==
--- NOTE | 2018-12-07 19:58 | MAM ---
EXAM DESCRIPTION: 3D Screening BILATERAL : Digital Mammography. CLINICAL HISTORY: 63 years Female ANNUAL SCREENING . No complaints. No personal or family history of breast cancer. Childbirth. Postmenopausal 23 years. HRT 5 or more years ago. Benign right breast biopsy. Lifetime risk of developing breast cancer (Tyrer-Cuzick model)(%): 7.8. COMPARISON: Bilateral screening digital breast tomosynthesis 10/11/2017. TECHNIQUE: Bilateral CC and MLO projection full-field images, digital tomosynthesis mammographic technique. Bilateral digital 2-D full-field MLO images. CAD not available for tomosynthesis or 2-D images. FINDINGS: The breast parenchymal density pattern is: Scattered areas of fibroglandular density. No skin thickening or nipple retraction. Right axillary lymph nodes. Bilateral vascular calcifications. Bilateral solitary microcalcifications. No new focal, stellate mass or density, focal asymmetry , and no suspicious microcalcifications bilaterally. Stable mammograms compared to prior study. IMPRESSION: Benign exam. BIRAD CATEGORY: 2 BENIGN FINDINGS. RECOMMENDATIONS: FOLLOW UP: Routine digital bilateral mammographic screening, one year interval from November 2018. Written communication explaining the IMPRESSION and follow-up, will be mailed to the patient and referring health care provider. According to the [employer], yearly mammograms are recommended starting at age 40 and continuing as long as a woman is in good health. Any breast change noted on a breast self-exam should be reported promptly to the patient's healthcare provider. Breast MRI is recommended for women with an approximately 20-25% or greater lifetime risk of breast cancer, including women with a strong family history of breast or ovarian cancer and women who have been treated for Hodgkin's disease. A negative mammographic report should not delay tissue diagnosis in patients with significant clinical history or physical findings. Extremely dense breast tissue limits the sensitivity of digital mammography. Electronically signed by: Pedro Rosales MD 12/07/2018 7:56 PM [employer] [facility]
== END ==
LOC: MAMMO 10:30
PROVIDERS: ATTEND Obstetrics & Gynecology
DX: Z12.31 Encounter for screening mammogram for malignant neoplasm of breast (principal)

== ENCOUNTER → 2019-08-30 | Outpatient (CLI) | payer BC ==
--- NOTE | 2019-08-31 10:26 | US ---
US THYROID CLINICAL STATEMENT: NODULE. No palpable mass, no prior thyroid surgery, no medical therapy. COMPARISON: None TECHNIQUE: Transcutaneous scanning, grayscale and Doppler modes. FINDINGS: Size right thyroid lobe: 4.8 x 2.0 x 1.6 cm Size left thyroid lobe: 3.8 x 1.9 x 1.6 cm Size isthmus: 0.48 cm Estimated total number of nodules greater than or equal to 1 cm: 2. No distinct cyst, no large calcifications, no parenchymal edema. Nodule 1: Size: 1.1 x 0.9 x 0.8 cm Location: Right Lower Composition: solid or almost completely solid: 2 points Echogenicity: very hypoechoic: 3 points Shape: wider than tall: 0 points Margins: ill-defined: 0 points Echogenic foci: none: 0 points ACR Total Points: 5; ACR TI-RADS risk category: TR4 - moderately suspicious nodule. Nodule 2: Size: 1.1 x 0.7 x 0.5 cm Location: Left Lower Composition: solid or almost completely solid: 2 points Echogenicity: hyperechoic: 1 point Shape: wider than tall: 0 points Margins: smooth: 0 points Echogenic foci: none: 0 points ACR Total Points: 3; ACR TI-RADS risk category: TR3 - mildly suspicious nodule. No dominant solid mass or distinct cyst in the surrounding soft tissues. IMPRESSION: 1. Nodule 1: ACR TI-RADS 2017 Category TR4. Recommend: Follow-up ultrasound in 1 year.. Recommendations based upon [facility] [employer] Best Practice recommendations and ACR TI-RADS 2017 guidelines. Please see below*. 2. Nodule 2: ACR TI-RADS 2017 Category TR3. Recommend: No further follow-up. 3. Soft tissue around the thyroid gland is unremarkable. *ACR TI-RADS 2017 Recommendations for imaging follow-up of nodules: TR1: No FNA or follow up TR2: No FNA or follow up TR3: FNA if >/= 2.5 cm, follow up if 1.5 - 2.4 cm in 1, 3, and 5 years TR4: FNA if >/= 1.5 cm, follow up if 1.0 - 1.4 cm in 1, 2, 3, and 5 years TR5: FNA if >/= 1.0 cm, follow up if 0.5 - 0.9 cm every year for 5 years ACR TI-RADS recommends that no more than two nodules with the highest ACR TI-RADS total point should be biopsied and no more than four nodules should be followed. These recommendations do not apply to patients with increased risk for thyroid cancer or patients with symptomatic thyroid disease. Electronically signed by: Pedro Rosales MD 08/31/2019 10:25 AM CDT
== END ==
LOC: US 13:30
PROVIDERS: ATTEND Family Medicine
DX: E04.1 Nontoxic single thyroid nodule (principal)

== ENCOUNTER → 2020-05-29 | Outpatient (CLI) | payer BC | LOC: GMAE 10:38 | PROVIDERS: ATTEND Family Medicine | DX: I10 Essential (primary) hypertension (principal); E78.49 Other hyperlipidemia; E11.9 Type 2 diabetes mellitus without complications ==

== ENCOUNTER → 2020-09-02 | Outpatient (CLI) | payer BC ==
--- NOTE | 2020-09-03 14:00 | MAM ---
EXAM DESCRIPTION: 3D Screening BILATERAL : Digital Mammography. CLINICAL HISTORY: 65 years Female SCREEN . No complaints. No family history breast cancer. Menarche age 12. Childbirth age 19. Menopause age 41. No HRT. Prior right breast biopsy benign. Lifetime risk of developing breast cancer (Tyrer-Cuzick model)(%): 5.8. COMPARISON: Bilateral screening digital breast tomosynthesis November 2018 and October 2017.. TECHNIQUE: Bilateral CC and MLO projection full-field images, digital tomosynthesis mammographic technique. Bilateral digital 2-D full-field MLO images. CAD available for 2-D images. FINDINGS: The breast parenchymal density pattern is: Scattered areas of fibroglandular density. No skin thickening or nipple retraction. Vascular calcifications. Solitary microcalcifications. Coarse calcifications. Secretory calcifications. Axillary nodes. No new focal, stellate mass or density, focal asymmetry , and no suspicious microcalcifications bilaterally. Stable mammograms compared to prior study. IMPRESSION: Benign exam. BIRAD CATEGORY: 2 BENIGN FINDINGS. RECOMMENDATIONS: FOLLOW UP: Routine digital bilateral mammographic screening, one year interval from August 2020. Written communication explaining the IMPRESSION and follow-up, will be mailed to the patient and referring health care provider. According to the [employer], yearly mammograms are recommended starting at age 40 and continuing as long as a woman is in good health. Any breast change noted on a breast self-exam should be reported promptly to the patient's healthcare provider. Breast MRI is recommended for women with an approximately 20-25% or greater lifetime risk of breast cancer, including women with a strong family history of breast or ovarian cancer and women who have been treated for Hodgkin's disease. A negative mammographic report should not delay tissue diagnosis in patients with significant clinical history or physical findings. Extremely dense breast tissue limits the sensitivity of digital mammography. Electronically signed by: Pedro Rosales MD 09/03/2020 1:58 PM CDT
== END ==
LOC: MAMMO 13:37
PROVIDERS: ATTEND Family Medicine
DX: Z12.31 Encounter for screening mammogram for malignant neoplasm of breast (principal)